=== PATIENT | male | born 1935 | race African-American/Black ===

== ENCOUNTER 2021-06-04 08:06 | Emergency (ER) | payer OTHER ==
[~2021-06-04] VITALS: Ht 170.2 cm; Wt 90.3 kg
[2021-06-04] MEDS ORDERED: NEURONTIN300 MG (08:27)
[2021-06-04] MEDS ORDERED: ATACAND32 MG (08:27)
[2021-06-04] MEDS ORDERED: PLAVIX75 MG (08:28)
[2021-06-04] MEDS ORDERED: CILOSTAZOL50 MG (08:28)
[2021-06-04] MEDS ORDERED: ZOCOR40 MG (08:28)
[2021-06-04] MEDS ORDERED: LEVOTHYROXINE25 MCG (08:28)
== END 2021-06-04 21:35 | disposition home or self-care (01) ==
LOC: ER 08:06
DX: I70.293 Other atherosclerosis of native arteries of extremities, bilateral legs (principal); M79.604 Pain in right leg; R60.0 Localized edema